=== PATIENT | male | born 1990 | race Caucasian/White ===

== ENCOUNTER 2021-12-11 01:04 | Emergency (ER) | payer OTHER ==
[~2021-12-11] VITALS: Ht 175.3 cm; Wt 79.5 kg
[2021-12-11 01:08] VITALS: BP 112/70
== END 2021-12-11 01:24 | disposition home or self-care (01) ==
LOC: ER 01:05
DX: G89.29 Other chronic pain (principal); M54.9 Dorsalgia, unspecified; Z02.89 Encounter for other administrative examinations; V87.7XXA Person injured in collision between other specified motor vehicles (traffic), initial encounter; Y93.89 Activity, other specified; Y92.89 Other specified places as the place of occurrence of the external cause; Y99.8 Other external cause status
CPT/HCPCS: 99283